=== PATIENT | female | born 1985 | race Hispanic/Latino ===

== ENCOUNTER 2024-04-28 00:24 | Emergency (ER) | payer OTHER ==
[~2024-04-28] VITALS: Ht 170.2 cm; Wt 122.9 kg
[2024-04-28 01:16] LABS: BASOPHILS # (AUTO) 0.02 K/uL (0.00-0.20); BASOPHILS % (AUTO) 0.2 % (0.0-5.0); EOSINOPHILS # (AUTO) 0.16 K/uL (0.00-0.70); EOSINOPHILS % (AUTO) 1.9 % (0.0-8.0); HEMATOCRIT 36.6 % (36-48); IMMATURE GRANULOCYTE ABSOLUTE 0.03 K/uL (0-1); LYMPHOCYTES # (AUTO) 1.5 K/uL (1.0-4.8); MEAN CORPUSCULAR HEMOGLOBIN 29.6 pg (27.0-33.0); MEAN CORPUSCULAR HGB CONC 32.8 g/dL (32.0-36.0); MEAN CORPUSCULAR VOLUME 90.1 fL (79-99); MONOCYTES # (AUTO) 0.4 K/uL (0.1-1.0); MONOCYTES % (AUTO) 5.1 % (3.0-13.0); NEUTROPHILS # (AUTO) 6.5 K/uL (1.8-7.7); NEUTROPHILS % (AUTO) 75.5 % (40.0-77.0); PLATELET COUNT (AUTO) 319 K/uL (130-400); RED BLOOD CELL COUNT(AUTO) 4.06 MIL/uL (4.00-5.50); RED CELL DISTRIBUTION WIDTH 12.6 % (11.0-15.5); WHITE BLOOD COUNT (AUTO) 8.6 K/uL (4.8-10.8)
[2024-04-28 01:22] LABS: CREATININE 0.7 mg/dL (0.5-1.0)
[2024-04-28 01:26] LABS: ALBUMIN 3.4 g/dL (3.5-5.0); BILIRUBIN,TOTAL 0.3 mg/dL (0.2-1.0); TOTAL PROTEIN, SERUM 7.5 g/dL (6.0-8.3)
[2024-04-28] MEDS: ONDANSETRON 4MG INJ IVP ONE (02:59)
[2024-04-28] MEDS: FAMOTIDINE 20MG VIAL IV ONE (03:11)
[2024-04-28] MEDS: KETOROLAC 30MG VIAL (30MG/ML) IVP ONE (03:11)
[2024-04-28] MEDS ORDERED: AZIT250T9 PO (03:12)
[2024-04-28 03:47] VITALS: BP 136/72; PULSE 82; RESP 16; O2SAT 97
== END 2024-04-28 03:55 | disposition home or self-care (01) ==
LOC: EDH 00:24
DX: J98.4 Other disorders of lung (principal); R07.89 Other chest pain; Z98.890 Other specified postprocedural states
CPT/HCPCS: 99285; 96374; 96375; 71045; 84484; 80053; 83880; 85025; 36415; 93005; J3490; J2405; J1885